=== PATIENT | male | born 1985 | race Caucasian/White ===

== ENCOUNTER 2019-05-13 06:49 | Day surgery (SDC) | payer MEDICAID ==
[~2019-05-13] VITALS: Ht 175.3 cm; Wt 106.1 kg
[~2019-05-13 06:49] MED LIST: SODIUM CHLORIDE 0.9% 1000ML 1,000 ML IV ONE
[2019-05-13 07:38] VITALS: BP 116/74
[2019-05-13] MEDS ORDERED: PANT40TA54 PO (07:57)
[2019-05-13] MEDS ORDERED: OLAN20TA35 PO (07:57)
[2019-05-13] MEDS ORDERED: AMLO2.5T4 PO (07:57)
[2019-05-13] MEDS ORDERED: DOXE25CA3 PO (07:57)
[2019-05-13] MEDS ORDERED: ATOR40TA71 PO (07:57)
[2019-05-13] MEDS ORDERED: LOSA100T58 PO (07:57)
[2019-05-13] MEDS ORDERED: ZOLP10TA2 PO (07:57)
[2019-05-13] MEDS ORDERED: PROPOFOL 10 MG/ML 20ML VIAL IV ONE ×2 (08:20→08:28)
[2019-05-13 08:35] VITALS: BP 100/59
[2019-05-13 08:40] VITALS: BP 97/67
[2019-05-13 08:45] VITALS: BP 124/58
[2019-05-13 08:53] VITALS: BP 115/76
[2019-05-13 09:00] VITALS: BP 125/66
== END 2019-05-13 09:04 | disposition home or self-care (01) ==
LOC: ENDO 06:49 → DAH 06:49 → ENDO 09:04
PROVIDERS: ATTEND Internal Medicine Gastroenterology
DX: R11.2 Nausea with vomiting, unspecified (principal); K29.70 Gastritis, unspecified, without bleeding; K31.89 Other diseases of stomach and duodenum; I10 Essential (primary) hypertension; F41.9 Anxiety disorder, unspecified; E78.5 Hyperlipidemia, unspecified; F32.9 Major depressive disorder, single episode, unspecified; E66.9 Obesity, unspecified; Z68.34 Body mass index [BMI] 34.0-34.9, adult; F17.210 Nicotine dependence, cigarettes, uncomplicated; Z79.899 Other long term (current) drug therapy; Z72.89 Other problems related to lifestyle; Z82.5 Family history of asthma and other chronic lower respiratory diseases; Z98.890 Other specified postprocedural states
CPT/HCPCS: 43239; 88305; 88342; A4215; A4221; A4222; A4223; A4606; A4620; A4663; J2704 ×2; J7030